=== PATIENT | female | born 1950 | race Caucasian/White ===

== ENCOUNTER 2024-02-27 10:29 | Emergency (ER) | payer MEDICARE, OTHER | END 2024-02-27 11:15 | disposition home or self-care (01) | LOC: JP.ED 10:29 | DX: H21.01 Hyphema, right eye (principal); E78.00 Pure hypercholesterolemia, unspecified; M19.90 Unspecified osteoarthritis, unspecified site; Z79.899 Other long term (current) drug therapy; Z79.82 Long term (current) use of aspirin | CPT/HCPCS: 99283 ==